=== PATIENT | male | born 1955 | race Caucasian/White ===

== ENCOUNTER 2024-05-19 12:07 | Emergency (ER) | payer BC ==
[~2024-05-19] VITALS: Ht 170.2 cm; Wt 81.6 kg
[2024-05-19 12:07] VITALS: BP_SYST 122; PULSE 69; RESP 18; TEMP 97.7; O2SAT 96
[2024-05-19] MEDS ORDERED: PRED20TA PO (13:31)
[2024-05-19] MEDS ORDERED: CYCL10TA24 PO (13:31)
[2024-05-19] MEDS ORDERED: HYDR-3927 PO (13:31)
[2024-05-19 13:54] VITALS: BP_SYST 122; PULSE 69; RESP 18; TEMP 97.7; O2SAT 96
== END 2024-05-19 13:56 | disposition home or self-care (01) ==
LOC: SED 12:07
DX: M54.32 Sciatica, left side (principal); M54.31 Sciatica, right side; I10 Essential (primary) hypertension; E78.5 Hyperlipidemia, unspecified; Z79.899 Other long term (current) drug therapy
CPT/HCPCS: 99283